=== PATIENT | male | born 1980 | race Hispanic/Latino ===

== ENCOUNTER 2018-09-07 09:27 | Emergency (ER) | payer MEDICAID, OTHER ==
[2018-09-07 09:58] VITALS: BMI 27.3
--- NOTE | 2018-09-07 10:32 | ED PDOC ---
Arrival/HPI - General Historian: Patient - History of Present Illness Narrative History of Present Illness (Text): 09/07/18 10:35 A 37 year old male, whose past medical history includes psoriasis, presents to the emergency department complaining of rash for the past 2 weeks. Rash is located to the dorsal aspects of the hands bilaterally, underneath both axilla, as well as medial aspects of thighs bilaterally. Patient denies using any new lotions, creams, detergents, soaps, or colognes. Denies any recent contact with poison roberto/oak. Patient denies any chest pain, shortness of breath, pain to extremities, or any other complaints at this time. No PMD Time/Duration: > week (2 weeks) Symptom Onset: Sudden Symptom Course: Unchanged - General Chief Complaint: Abnormal Skin Integrity Time Seen by Provider: 09/07/18 09:36 Past Medical History - Provider Review Nursing Documentation Reviewed: Yes - Infectious Disease Hx of Infectious Diseases: None - Cardiac Hx Cardiac Disorders: No Hx Hypertension: No - Pulmonary Hx Tuberculosis: No - Neurological HX Cerebrovascular Accident: No Hx Seizures: No - Renal Hx Renal Disorder: No - Endocrine/Metabolic Hx Endocrine Disorders: No - Hematological/Oncological Hx Cancer: No - Integumentary Hx Dermatological Disorder: Yes Hx Psoriasis: Yes - Musculoskeletal/Rheumatological Hx Falls: No - Genitourinary/Gynecological Hx Sexually Transmitted Diseases: No - Psychiatric Hx Substance Use: Yes - Surgical History Hx Appendectomy: Yes - Anesthesia Hx Anesthesia: Yes Hx Anesthesia Reactions: No Hx Malignant Hyperthermia: No - Suicidal Assessment Feels Threatened In Home Enviroment: No Family/Social History - Physician Review Nursing Documentation Reviewed: Yes Family/Social History: No Known Family HX Smoking Status: Heavy Smoker > 10 Cigarettes Daily Hx Alcohol Use: No Hx Substance Use: Yes Substance used: heroin & xanax Allergies/Home Meds Allergies/Adverse Reactions: Allergies No Known Allergies Allergy (Verified 11/18/16 20:24) Review of Systems - Physician Review All systems were reviewed & negative as marked: Yes - Review of Systems Respiratory: absent: SOB Cardiovascular: absent: Chest Pain Skin: Rash (dorsal aspects of the hands bilaterally, underneath both axilla; medial aspects of thighs bilaterally) Physical Exam - Systems Exam Respiratory/Chest: Present: Clear to Auscultation, Good Air Exchange. No: Respiratory Distress, Accessory Muscle Use Cardiovascular: Present: Regular Rate and Rhythm, Normal S1, S2. No: Murmurs Abdomen: No: Tenderness, Distention, Peritoneal Signs Upper Extremity: Present: Normal Inspection. No: Cyanosis, Edema Lower Extremity: Present: Normal Inspection. No: Edema Neurological: Present: GCS=15, CN II-XII Intact, Speech Normal Skin: Present: Rashes (along hands bilaterally, there are 1-2 mm pinpoint blisters located on the dorsal aspects over the PIP joints, underneath both axilla small erythematous papulas (non-tender); same rash in the groin region and bilateral thighs) Psychiatric: Present: Alert, Oriented x 3, Normal Insight, Normal Concentration Medical Decision Making ED Course and Treatment: 09/07/18 10:52 Patient is nontoxic well-appearing in no distress with stable vital signs no angioedema. Lungs are clear to auscultation bilaterally there is no wheezing noted. The airway is patent I advised taking Benadryl every 6 hours as needed for itch, pt was advised to apply hydrocortisone cream to affected areas sparingly. pt was advised to f/u with experimental [facility] mechanic within the next 2 days. Advised patient to follow up with primary care physician within the next 2 days and return if symptoms worsen persist or if new symptoms develop Patient verbalizes understanding of discharge instructions and need for immediate followup. all aspects of this case were discussed the attending of record. Impression : RASH Benadryl every 6 hours as needed for itch Apply hydrocortisone cream sparingly to the affected areas. Pepcid one tablet daily Follow up with the primary care physician within the next 2 days follow up with the experimental [facility] mechanic within the next 2 days. Return if symptoms worsen persist or if new symptoms develop: Shortness of breath, feeling of throat closing, difficulty speaking or any other concerning symptoms develop - Scribe Statement The provider has reviewed the documentation as recorded by the Rosibel Higginbotham Provider Scribe Attestation: All medical record entries made by the Rosibel were at my direction and personally dictated by me. I have reviewed the chart and agree that the record accurately reflects my personal performance of the history, physical exam, medical decision making, and the department course for this patient. I have also personally directed, reviewed, and agree with the discharge instructions and disposition. Disposition/Present on Arrival - Present on Arrival Any Indicators Present on Arrival: No History of DVT/PE: No History of Uncontrolled Diabetes: No Urinary Catheter: No History of Decub. Ulcer: No History Surgical Site Infection Following: None - Disposition Have Diagnosis and Disposition been Completed?: Yes Disposition Time: 10:21 Patient Plan: Discharge - Disposition Diagnosis: Rash Disposition: HOME/ ROUTINE Patient Problems: Current Active Problems Problem Status Onset Rash Acute Condition: GOOD Discharge Instructions (ExitCare): Skin Rash (DC) Additional Instructions: Benadryl every 6 hours as needed for itch Apply hydrocortisone cream sparingly to the affected areas. Pepcid one tablet daily Follow up with the primary care physician within the next 2 days follow up with the experimental [facility] mechanic within the next 2 days. Return if symptoms worsen persist or if new symptoms develop: Shortness of breath, feeling of throat closing, difficulty speaking or any other concerning symptoms develop Prescriptions: DiphenhydrAMINE [Benadryl] 25 mg PO Q6H #20 cap Famotidine [Pepcid] 20 mg PO DAILY #30 tab Hydrocortisone 1% Cream [Cortizone 1% Cream] 1 appl TP BID #1 tube Referrals: Tyra Nuñez MD [Staff Provider] - Follow up with primary Durga Norman JD, MD [Family Provider] - Follow up with primary Forms: [facility] (Persian), WORK NOTE
[2018-09-07 11:02] VITALS: BP 130/90; PULSE 76; RESP 19; TEMP 98.7
[2018-09-07 11:18] VITALS: O2SAT 100
== END 2018-09-07 11:17 | disposition home or self-care (01) ==
LOC: ED 09:27
DX: R21 Rash and other nonspecific skin eruption (principal); F17.210 Nicotine dependence, cigarettes, uncomplicated